=== PATIENT | female | born 2005 | race Caucasian/White ===

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

== ENCOUNTER 2023-07-12 14:34 | Emergency (ER) | payer OTHER ==
--- NOTE | 2023-07-12 14:58 | ED ---
General Adult HPI - General Source: patient, family, RN notes reviewed Mode of arrival: ambulatory Limitations: no limitations <Gilbert Cornelius - Last Filed: 07/12/23 14:56> - General Source: RN notes reviewed, old records reviewed, Caregiver Mode of arrival: ambulatory Limitations: no limitations - History of Present Illness -: days(s) Location: head, face Radiation: non-radiation Severity scale (1-10): 4 Consistency: intermittent Improves with: none Worsens with: none Associated Symptoms: denies other symptoms <Lico Mendez - Last Filed: 07/20/23 11:56> - General Stated complaint: Vertigo symptons Time Seen by Provider: 07/12/23 14:56 - History of Present Illness Initial comments: 18-year-old female presents emergency Department from urgent care for evaluation of dizziness. Patient states that she woke up today and was very dizzy, lightheaded states that happened multiple times today with movement. She states her room spins and she feels like she is off balance. Patient states that she didn't go to work states that work she was leaning to the right when her left hand became tingly. She states it was maybe up to the elbow. She states that has resolved she has no resting symptoms no focal weakness. Urgent care center here for further evaluation. (Gilbert Cornelius) This is a 18-year-old female to the emergency department today for evaluation of dizziness and vertiginous symptoms. No specific traumatic headache or patient was seen at urgent care sent to ER for further evaluation. Patient states her symptoms are dramatically improved now in the emergency department (Lico Mendez) - Related Data Home Medications Medication Instructions Recorded Confirmed Dexmethylphenidate HCl [Focalin Xr] 20 mg PO QAM 11/21/17 11/21/17 Allergies Allergy/AdvReac Type Severity Reaction Status Date / Time No Known Allergies Allergy Verified 07/12/23 15:03 Review of Systems ROS Other: All systems not noted in ROS Statement are negative. <Gilbert Cornelius - Last Filed: 07/12/23 14:56> ROS Other: All systems not noted in ROS Statement are negative. <Lico Mendez - Last Filed: 07/20/23 11:56> ROS Statement: Those systems with pertinent positive or pertinent negative responses have been documented in the HPI. Past Medical History Past Medical History: No Reported History History of Any Multi-Drug Resistant Organisms: None Reported Past Surgical History: Adenoidectomy, Tonsillectomy Past Psychological History: No Psychological Hx Reported Past Alcohol Use History: None Reported Past Drug Use History: None Reported <Gilbert Cornelius - Last Filed: 07/12/23 14:56> General Exam <Gilbert Corenlius - Last Filed: 07/12/23 14:56> General appearance: alert, in no apparent distress Head exam: Present: atraumatic, normocephalic, normal inspection Eye exam: Present: normal appearance, PERRL, EOMI. Absent: scleral icterus, conjunctival injection, periorbital swelling ENT exam: Present: normal exam, mucous membranes moist Neck exam: Present: normal inspection. Absent: tenderness, meningismus, lymphadenopathy Respiratory exam: Present: normal lung sounds bilaterally. Absent: respiratory distress, wheezes, rales, rhonchi, stridor Cardiovascular Exam: Present: regular rate, normal rhythm, normal heart sounds. Absent: systolic murmur, diastolic murmur, rubs, gallop, clicks GI/Abdominal exam: Present: soft, normal bowel sounds. Absent: distended, tenderness, guarding, rebound, rigid Extremities exam: Present: normal inspection, full ROM, normal capillary refill. Absent: tenderness, pedal edema, joint swelling, calf tenderness Back exam: Present: normal inspection Neurological exam: Present: alert, oriented X3, CN II-XII intact Psychiatric exam: Present: normal affect, normal mood Skin exam: Present: warm, dry, intact, normal color. Absent: rash <Lico Mendez - Last Filed: 07/20/23 11:56> - General Exam Comments Initial Comments: Visual Physical Exam Vital signs reviewed General: Well-appearing, nontoxic, no acute distress. Head: Normocephalic, atraumatic Eyes: PERRLA, EOMI ENT: Airway patent Chest: Nonlabored breathing Skin: No visual rash, normal skin tone Neuro: Alert and oriented 3 Musculoskeletal: No gross abnormalities (Gilbert Cornelius) Course <Lico Mendez - Last Filed: 07/20/23 11:56> Vital Signs 07/12/23 07/12/23 14:57 17:11 Temperature 98.5 F 98.2 F Pulse Rate 96 91 Respiratory 18 18 Rate Blood Pressure 127/83 122/84 O2 Sat by Pulse 100 100 Oximetry - Reevaluation(s) Reevaluation #1: Medical records reviewed (Lico Mendez) Reevaluation #2: Patient symptoms improved (Lico Mendez) Reevaluation #3: Patient informed results questions answered (Lico Mendez) Reevaluation #4: Was pt. sent in by a medical professional or institution ([facility] Th[facility]aux, HR RECEPTIONIST, urgent care, hospital, or skilled nursing...) When possible be specific @ -no Did you speak to anyone other than the patient for history (EMS, parent, family, police, friend...)? What history was obtained from this source @ -no Did you review nursing and triage notes (agree or disagree)? Why? @ -agree Are old charts reviewed (outside hosp., previous admission, EMS record, old EKG, old radiological studies, urgent care reports/EKG's, skilled nursing records)? Report findings @ -yes Differential Diagnosis (chest pain, altered mental status, abdominal pain women, abdominal pain men, vaginal bleeding, weakness, fever, dyspnea, syncope, headache, dizziness, GI bleed, back pain, seizure, CVA, palpatations, mental health, musculoskeletal)? @ -prior EKG interpreted by me (3pts min.). @ -yes X-rays interpreted by me (1pt min.). @ -no CT interpreted by me (1pt min.). @ -no U/S interpreted by me (1pt. min.). @ -no What testing was considered but not performed or refused? (CT, X-rays, U/S, labs)? Why? @ -none What meds were considered but not given or refused? Why? @ -none Did you discuss the management of the patient with other professionals (professionals i.e. [facility] Thibodeaux, HR RECEPTIONIST, lab, RT, psych nurse, social science instructor, fish housekeeper, teacher, chief executive officer, case packer and sealer)? Give summary @ -no Was smoking cessation discussed for >3mins.? @ -no Was critical care preformed (if so, how long)? @ -no Were there social determinants of health that impacted care today? How? (Homelessness, low income, unemployed, alcoholism, drug addiction, transportation, low edu. Level, literacy, decrease access to med. care, intermediate, rehab)? @ -none Was there de-escalation of care discussed even if they declined (Discuss DNR or withdrawal of care, Hospice)? DNR status @ -no What co-morbidities impacted this encounter? (DM, HTN, Smoking, COPD, CAD, Cancer, CVA, ARF, Chemo, Hep., AIDS, mental health diagnosis, sleep apnea, morbid obesity)? @ -none Was patient admitted / discharged? Hospital course, mention meds given and route, prescriptions, significant lab abnormalities, going to OR and other pertinent info. @ - 18 female to the emergency department today for evaluation dizziness lightheadedness occasional headaches. Patient has likely viral infection precipitating vertigo and vertiginous symptoms. Patient has no other complaints of findings here in the urine can be discharged home Discharge Undiagnosed new problem with uncertain prognosis? @ -no Drug Therapy requiring intensive monitoring for toxicity (Heparin, Nitro, Insulin, Cardizem)? @ -no Were any procedures done? @ -no Diagnosis/symptom? @ -Dizziness, viral infection, vertigo Acute, or Chronic, or Acute on Chronic? @ -Acute Uncomplicated (without systemic symptoms) or Complicated (systemic symptoms)? @ -Complicated Side effects of treatment? @ -no Exacerbation, Progression, or Severe Exacerbation? @ -exacerbation Poses a threat to life or bodily function? How? (Chest pain, [place], PR, pneumonia, PE, COPD, DKA, ARF, appy, cholecystitis, CVA, Diverticulitis, Homicidal, Suicidal, threat to staff... and all critical care pts) @ -no (Lico Mendez) Reevaluation #5: Differential Dizziness: Benign paroxysmal positional Vertigo, Menieres disease, otitis media, acoustic neuroma, vertebrobasilar insufficiency, cerebellar stroke, encephalitis, hypovolemic, arrhythmia, coronary artery syndrome, anemia, this is not meant to be an all-inclusive list (Lico Mendez) EKG Findings - EKG Comments: EKG Findings:: EKG shows 92 HI 104 QRS 87 QTc 398 - EKG Results: EKG: interpreted by ERMD <Lico Mendez - Last Filed: 07/20/23 11:56> Medical Decision Making <Gilbert Cornelius - Last Filed: 07/12/23 14:56> - Lab Data Result diagrams: 07/12/23 15:16 07/12/23 15:16 - EKG Data -: EKG Interpreted by Me <Lico Mendez - Last Filed: 07/20/23 11:56> - Medical Decision Making I completed the quick note portion of this chart signed Gilbert Cornelius PA-C (Gilbert Cornelius) 18 female to the emergency department today for evaluation dizziness lightheadedness occasional headaches. Patient has likely viral infection precipitating vertigo and vertiginous symptoms. Patient has no other complaints of findings here in the urine can be discharged home (Lico Mendez) - Lab Data Lab Results 07/12/23 07/12/23 Range/Units 15:16 15:16 WBC 7.6 (4.0-11.0) k/uL RBC 4.61 (3.80-5.40) m/uL Hgb 14.3 (11.4-16.0) gm/dL Hct 41.3 (34.0-46.0) % MCV 89.4 (80.0-100.0) fL MCH 30.9 (25.0-35.0) pg MCHC 34.6 (31.0-37.0) g/dL RDW 12.2 (11.5-15.5) % Plt Count 176 (150-450) k/uL MPV 9.8 Neutrophils % 69 % Lymphocytes % 24 % Monocytes % 3 % Eosinophils % 2 % Basophils % 0 % Neutrophils # 5.3 (1.3-7.7) k/uL Lymphocytes # 1.8 (1.0-4.8) k/uL Monocytes # 0.2 (0-1.0) k/uL Eosinophils # 0.1 (0-0.7) k/uL Basophils # 0.0 (0-0.2) k/uL Sodium 139 (137-145) mmol/L Potassium 4.0 (3.5-5.1) mmol/L Chloride 103 (98-107) mmol/L Carbon Dioxide 23 (22-30) mmol/L Anion Gap 13 mmol/L BUN 15 (7-17) mg/dL Creatinine 0.80 (0.52-1.04) mg/dL Est GFR (CKD-EPI)AfAm >90 (>60 ml/min/1.73 sqM) Est GFR (CKD-EPI)NonAf >90 (>60 ml/min/1.73 sqM) Glucose 107 H (74-99) mg/dL Calcium 9.6 (8.4-10.2) mg/dL Total Bilirubin 0.5 (0.2-1.3) mg/dL AST 36 (14-36) U/L ALT 41 H (4-34) U/L Alkaline Phosphatase 51 (38-126) U/L Total Protein 7.4 (6.3-8.2) g/dL Albumin 4.4 (3.5-5.0) g/dL TSH 1.290 (0.465-4.680) mIU/L HCG, Qual Not Detected Disposition <Gilbert Cornelius - Last Filed: 07/12/23 14:56> Is patient prescribed a controlled substance at d/c from ED?: No Time of Disposition: 16:40 <Lico Mendez - Last Filed: 07/20/23 11:56> Clinical Impression: Vertigo, Dizziness, Paresthesia, Acute viral syndrome Disposition: HOME SELF-CARE Instructions (If sedation given, give patient instructions): Vertigo (ED) Referrals: None,Stated [Primary Care Provider] - 1-2 days
[2023-07-12 15:17] VITALS: RESP 18
[2023-07-12 15:35] LABS: Basophils % (A) 0 %; Eosinophils # (A) 0.1 k/uL (0-0.7); Eosinophils % (A) 2 %; HCT 41.3 % (34.0-46.0); HGB 14.3 gm/dL (11.4-16.0); Lymphocytes # (A) 1.8 k/uL (1.0-4.8); Lymphocytes % (A) 24 %; MCH 30.9 pg (25.0-35.0); MCHC 34.6 g/dL (31.0-37.0); MCV 89.4 fL (80.0-100.0); Mean Platelet Volume 9.8; Monocytes # (A) 0.2 k/uL (0-1.0); Monocytes % (A) 3 %; Neutrophils # (A) 5.3 k/uL (1.3-7.7); Neutrophils % (A) 69 %; Platelet Count 176 k/uL (150-450); RBC 4.61 m/uL (3.80-5.40); RDW 12.2 % (11.5-15.5); WBC 7.6 k/uL (4.0-11.0)
[2023-07-12 15:56] LABS: ALT 41 U/L (4-34); AST 36 U/L (14-36); African American GFR (CKD) >90 (>60 ml/min/1.73 sqM); Albumin 4.4 g/dL (3.5-5.0); Alkaline Phosphatase 51 U/L (38-126); Anion Gap 13 mmol/L; Blood Urea Nitrogen 15 mg/dL (7-17); Calcium 9.6 mg/dL (8.4-10.2); Carbon Dioxide 23 mmol/L (22-30); Chloride 103 mmol/L (98-107); Glucose 107 mg/dL (74-99); Non-African American GFR(CKD) >90 (>60 ml/min/1.73 sqM); Sodium 139 mmol/L (137-145); Total Bilirubin 0.5 mg/dL (0.2-1.3); Total Protein 7.4 g/dL (6.3-8.2)
[2023-07-12 16:09] LABS: HCG,Qualitative Serum Not Detected
[2023-07-12 17:21] VITALS: BP 122/84; PULSE 91; TEMP 98.2
== END 2023-07-12 17:13 | disposition home or self-care (01) ==
LOC: EC 14:34
DX: B34.9 Viral infection, unspecified (principal); R42 Dizziness and giddiness; R20.2 Paresthesia of skin
CPT/HCPCS: 36415; 80053; 84443; 84703; 85025; 93005; 99284